=== PATIENT | female | born 1985 | race Caucasian/White ===

== ENCOUNTER 2019-04-29 10:31 | Emergency (ER) | payer OTHER ==
[~2019-04-29] VITALS: Ht 165.1 cm; Wt 63.6 kg
[2019-04-29] MEDS ORDERED: CLON.5 PO (10:54)
[2019-04-29] MEDS ORDERED: LORazepam 2 MG TABLET PO ONE (11:00)
[2019-04-29 11:34] VITALS: BP 107/63
== END 2019-04-29 12:11 | disposition home or self-care (01) ==
LOC: EMS 10:31
DX: F41.9 Anxiety disorder, unspecified (principal); F32.9 Major depressive disorder, single episode, unspecified; F12.90 Cannabis use, unspecified, uncomplicated; Z79.899 Other long term (current) drug therapy